=== PATIENT | female | born 1960 | race Caucasian/White ===

== ENCOUNTER → 2020-05-07 | Outpatient (CLI) | payer BC | END | disposition home or self-care (01) | LOC: LABPAT 08:18 | PROVIDERS: ATTEND Obstetrics & Gynecology | DX: Z01.818 Encounter for other preprocedural examination (principal) | CPT/HCPCS: 36415; 86850; 86900; 86901 ==

== ENCOUNTER 2020-05-10 05:54 | Observation (INO) | payer BC ==
[2020-05-04 11:28] VITALS: BMI 35.4
--- NOTE | 2020-05-07 12:13 | P.HPOB ---
History of Present Illness H&P Date: 05/07/20 Chief Complaint: Ovarian cyst Patient is a 60-year-old female with a left ovarian cyst noted on ultrasound. She was referred to me by her primary care. Provider and the cystic areas noted and has been present for approximately 10 years. She had seen a prior rolloff driver who was following it and they were not doing anything to resolve the cyst, but she now feels she is much more bloating and she is more symptomatic with discomfort. She is requesting surgical removal. She is scheduled for a robotic-assisted laparoscopic hysterectomy with left salpingo- oophorectomy possible GORDON and possible BSO. She was offered referral to gynecology oncology but she has declined this. Her CA-125 level was normal. She is aware of risks of surgery including but not limited to bleeding and infection damage to bladder, bowel, vascular injuries, nerve injuries, ureteral injuries as well as potential need further surgery even . All questions are answered for her prior to proceeding to the operating room. Past Medical History Past Medical History: Sleep Apnea/CPAP/BIPAP Additional Past Medical History / Comment(s): cpap use, states has ovarian cyst History of Any Multi-Drug Resistant Organisms: None Reported Past Surgical History: Appendectomy Past Anesthesia/Blood Transfusion Reactions: No Reported Reaction Smoking Status: Former smoker - Past Family History Sister(s) Family Medical History: Cancer Additional Family Medical History / Comment(s): colon Medications and Allergies Home Medications Medication Instructions Recorded Confirmed Type FLUoxetine HCL [PROzac] 20 mg PO BID 05/04/20 05/04/20 History Oxybutynin Xl [Ditropan Xl] 5 mg PO DAILY 05/04/20 05/04/20 History Allergies Allergy/AdvReac Type Severity Reaction Status Date / Time No Known Allergies Allergy Verified 05/04/20 11:22 Exam Osteopathic Statement: *. No significant issues noted on an osteopathic structural exam other than those noted in the History and Physical/Consult. - OBG Physical Exam Breast: both: normal (no masses) Abdomen: bowel sounds normal, no diffuse tenderness, no bruit present, no guarding noted, no hepatomegaly, no splenomegaly, no mass Vulva: both: normal Vagina: normal moisture, no discharge Cervix: no lesion, no discharge Uterus: normal size, normal contour Adnexa: both: normal Anus/Rectum: normal perianal skin, no rectal mass, no hemorrhoids, heme negative
[~2020-05-10 05:54] MED LIST: DEXAMETHASONE SOD PHOSPHATE 4 MG/ML 1 ML VIAL IV ONE
[2020-05-10] MEDS: LACTATED RINGERS 1,000 ML IV SCH (06:33)
[2020-05-10] MEDS ORDERED: LIDOCAINE 1% (10MG/ML) FOR IV START INTRADERMA ONE (06:33)
[2020-05-10] MEDS: ONDANSETRON 4 MG/2 ML VIAL IVP ONE ×2 (06:36→10:01)
[2020-05-10] MEDS ORDERED: SUCCINYLCHOLINE CHLORIDE 100 MG/5 ML SYR IV ONE (07:53)
[2020-05-10] MEDS ORDERED: NEOSTIGMINE 1 MG/ML 10 ML VIAL ONE (07:53)
[2020-05-10] MEDS ORDERED: KETOROLAC 15 MG/ML 1 ML VIAL ONE (07:53)
[2020-05-10] MEDS ORDERED: GLYCOPYRROLATE 0.2 MG/ML 2 ML VIAL ONE (07:53)
[2020-05-10] MEDS ORDERED: ROCURONIUM 10 MG/ML (10 ML VIAL) IV ONE (07:53)
[2020-05-10] MEDS ORDERED: LIDOCAINE 1% INJ 10MG/ML (20 ML MDV) ONE (07:53)
[2020-05-10] MEDS ORDERED: MIDAZOLAM 2 MG/2 ML VIAL ONE (07:53)
[2020-05-10] MEDS ORDERED: fentaNYL (PF) 50 MCG/ML 2 ML AMP ONE (07:53)
[2020-05-10] MEDS ORDERED: BUPIVACAINE (PF) 0.25% 30 ML VIAL SQ ONE (08:16)
[2020-05-10] MEDS ORDERED: BACITRACIN ZINC 500 UNIT/GM OINT 28.4 GM TUBE TOPICAL ONE (08:59)
[2020-05-10] MEDS ORDERED: IOPAMIDOL-370 50ML BTL MISCELLANE ONE (09:19)
[2020-05-10] MEDS ORDERED: ONDANSETRON 4 MG/2 ML VIAL IVP PRN (09:28)
[2020-05-10] MEDS ORDERED: SIMETHICONE 80 MG CHEWABLE PO PRN (09:28)
--- NOTE | 2020-05-10 09:33 | P.GSCN ---
History of Present Illness Consult date: 05/10/20 Reason for Consult: evaluation of left ureter History of present illness: Ms Patel is a 60-year-old female that is undergoing robotic-assisted laparoscopic hysterectomy she underwent a cystoscopy that showed clear effluxed from the right ureter, but no reflux was seen from the right ureter. Given this finding decision was made to consult urology intraoperatively. No prior urological surgeries Review of Systems Unable to perform due to patient being intubated for surgery Past Medical History Past Medical History: Sleep Apnea/CPAP/BIPAP Additional Past Medical History / Comment(s): cpap use, states has ovarian cyst History of Any Multi-Drug Resistant Organisms: None Reported Past Surgical History: Appendectomy Past Anesthesia/Blood Transfusion Reactions: No Reported Reaction Smoking Status: Former smoker - Past Family History Sister(s) Family Medical History: Cancer Additional Family Medical History / Comment(s): colon Medications and Allergies Home Medications Medication Instructions Recorded Confirmed Type FLUoxetine HCL [PROzac] 20 mg PO BID 05/04/20 05/10/20 History Oxybutynin Xl [Ditropan Xl] 5 mg PO DAILY 05/04/20 05/10/20 History Allergies Allergy/AdvReac Type Severity Reaction Status Date / Time No Known Allergies Allergy Verified 05/04/20 11:22 Surgical - Exam Vital Signs Temp Pulse Resp BP Pulse Ox 97.8 F 60 16 132/66 95 05/10/20 06:19 05/10/20 06:19 05/10/20 06:19 05/10/20 06:19 05/10/20 06:19 Assessment and Plan Assessment: Ms Patel is a 60-year-old female that is undergoing robotic-assisted laparoscopic hysterectomy, she underwent a cystoscopy that showed clear effluxed from the right ureter, but no reflux was seen from the right ureter. Given this finding decision was made to consult urology intraoperatively. -Cystoscopy was performed in the OR, cystoscopy was within normal limits,prior to attempting to catheterize left ureter, clear reflux was seen from the left ureter, given this finding no further intervention was performed
--- NOTE | 2020-05-10 09:37 | P.OP ---
Date of Procedure: 05/10/20 Preoperative Diagnosis: ovarian cyst Postoperative Diagnosis: same Procedure(s) Performed: Cystoscopy Implants: None Anesthesia: ZEINAA Surgeon: Madi Thomas Estimated Blood Loss (ml): 0 Pathology: none sent Condition: stable Disposition: PACU Indications for Procedure: Ms Patel is a 60-year-old female that is undergoing robotic-assisted laparoscopic hysterectomy, [place] cervicectomy she underwent a cystoscopy that showed clear effluxed from the right ureter, but no reflux was seen from the right ureter. Given this finding decision was made to consult urology intraoperatively. No prior urological surgeries Operative Findings: Clear efflux seen from bilateral ureters, normal cystoscopy Description of Procedure: Urology was called after no reflux was seen from the left ureter. A cystoscopy fitted 22-Uzbek sheath was inserted per urethra, cystoscopy was performed showed no abnormality within the bladder. Clear reflux was seen from the right ureter. I then attempted to catheterize the left ureter, but patient had J hooking of the left ureter, I then attempted to pass a wire through the catheter. But prior to passing the wire through the catheter clear reflux was seen from the left ureter, given this finding of clear efflux from the left ureter, catherization was not performed.
--- NOTE | 2020-05-10 09:38 | P.OP ---
Date of Procedure: 05/10/20 Preoperative Diagnosis: Ovarian mass Postoperative Diagnosis: Same with noted what is a paraovarian/ paratubal cyst small fibroid posterior uterus Procedure(s) Performed: Robotic-assisted laparoscopic hysterectomy with bilateral salpingo-oophorectomy and cystoscopy Anesthesia: ALEX Surgeon: Dano Cr Lime Burner #1: Yamini Al Estimated Blood Loss (ml): 100 IV fluids (ml): 800 Urine output (ml): 200 Pathology: other (Uterus, cervix, bilateral fallopian tubes and ovaries) Condition: stable Disposition: floor Operative Findings: Large left paraovarian/paratubal cyst which was removed along with uterus that contained approximately 2-3 cm fibroid pedunculated posteriorly Description of Procedure: The patient was taken to the operating suite where a general anesthetic was found be adequate. She was prepped and draped in the normal sterile fashion and placed in dorsal lithotomy position. Initially a speculum was inserted into the vagina and the anterior lip of the cervix identified and grasped with a single- tooth tenaculum. Cervix was then dilated cup was measured 2.5 cm and uterus sounded to 7-8 cm. Missy manipulator was then inserted without difficulty and Diamond cath was placed with other incidents removed and sutures placed at 3 and 9 for assistance in removal. Gloves were then changed and attention was turned to the abdominal portion procedure where 3 mL of quarter percent Marcaine was injected. Umbilical. Through this injected anesthetic 8 mm skin incision was made and a port and sleeve were inserted under direct visualization with an optical trocar without difficulty. Once peritoneal placement was assured gas was left fully insufflate the abdomen and patient was placed in steep Trendelenburg position of 25. 2 lateral ports were then placed 10 cm from the umbilicus on the right and left side and a fourth port and sleeve was inserted through a 1 cm incision between the left lateral and medial port. Camera port was then exchanged for a robotic port and the da Yosef robot was brought in and docked. Once fully docked a scissor was placed in the one arm and a [place] grasper in the 2 arm. At this point I broke scrub and went to the console. Observations pelvis were noted. Uterus was then elevated tip left-hand side ovarian/paraovarian cyst was then identified elevated and using [place] grasped cauterized the infundibular pelvic ligament posteriorly tissue was cauterized and then running to the mesosalpinx tissues to the round ligament tissues cauterized all the way to the round ligament and cut. Round ligament was then cauterized and transected anterior posterior leafs of the broad ligament were then developed and cardinal ligaments were cauterized to the uterosacral ligament. Bladder flap was then identified and entered with Metzenbaums Scissors and Carried across Face the Uterus with Metzenbaum Scissors and Bladder Was Then Bluntly Dissected Out Of the Operative Field. Similar Fashion Right Side of the Uterus Was Developed. Once This Is Complete with Bladder Completely Out Of the Operative Field Anterior Colpotomy Was Made and This Opening Was Followed around in a 3 and 60 Fashion Cheating Head When Necessary to Maintain Excellent Hemostasis Once Complete Removal from the Vagina Was Noted Uterus Was Brought down into the Vagina to Maintain Pneumoperitoneum. Cyst Was Too Large to Fit into the Vagina through That Small Opening Therefore Was Placed in the Gallbladder Bag and Once in the Gallbladder Bag It Was Perforated and the Fluid Was Noted Be Clear and Was Removed with the Ovarian Cyst through the Bag. Once This Was Completed Pelvis Was Irrigated Seeing No Significant Bleeding in and around the Pedicles the Incidents Were Exchanged for a Make Suture Cut and Cardia Grasper and Using to OB Lock Suture the Vaginal Cuff Was Closed. A Laceration Was Noted in the Vagina during This Closure Once Closed and Observations Observe There Was No Significant Bleeding from Any of the Pedicles the Vaginal Cuff Therefore All Closed Incidents Removed Robot Was Brought out and Was Undocked and Dr. Al Following Removal of the Pneumoperitoneum and 5 Deep Breaths Close Incision Subcuticular at This Point I Did Identify 2 Separate Lacerations in the Vagina Which Were Repaired with 3-0 Vicryl in a Running Fashion. Once That Was Completed with Good Hemostasis Noted I Did Do a Cystoscopy Cystoscopy Showed Good Flow from the Right Ureteral Jets Were No Flow Was Noted from the Left Ureteral Jets. We Observe This Area for Twin 10 and 15 Minutes and at This Point I Did Call Urology. Urology Came in Repeat the Cystoscopy and Using a Catheter Tip Entered the Meatus and on Removal of the Just the Tip of the Catheter Urine Flowed without Difficulty and Was Noted to Be Clear Therefore Allis Was Removed and Cystoscopy Was Discontinued at That Point with Good Flow Noted from Both Ureteral Jets. I Did at This Point Packed the Vagina with Iodoform Gauze Bacitracin and Will Plan to Remove That Later Today. All Incidents Were Then Removed. Sponge, Lap, Needle Counts Were All Correct 2 and Patient Was Then Taken to the Recovery Room in Stable and Satisfactory Condition.
[2020-05-10] MEDS: HYDROmorphone 0.5 MG/0.5 ML SYRINGE IVP PRN ×2 (09:49→09:57)
[2020-05-10] MEDS ORDERED: LACTATED RINGERS 1,000 ML IV ONE (10:05)
[2020-05-10] MEDS: KETOROLAC 15 MG/ML 1 ML VIAL IVP PRN (17:12)
[2020-05-10] MEDS: FLUoxetine HCL 20 MG CAP PO SCH (20:34)
[2020-05-10] MEDS: SENNOSIDES-DOCUSATE SODIUM 1 EACH TAB PO SCH (20:34)
[2020-05-11] MEDS: KETOROLAC 15 MG/ML 1 ML VIAL IVP PRN ×2 (01:23→09:32)
[2020-05-11] MEDS: LACTATED RINGERS 1,000 ML IV SCH (06:28)
[2020-05-11] MEDS: FLUoxetine HCL 20 MG CAP PO SCH (09:32)
[2020-05-11] MEDS: SENNOSIDES-DOCUSATE SODIUM 1 EACH TAB PO SCH (09:32)
[2020-05-11 09:38] VITALS: RESP 16; TEMP 98
[2020-05-11 12:38] VITALS: BP 130/70; PULSE 59
--- NOTE | 2020-05-11 16:03 | P.DS ---
Providers Date of admission: 05/11/20 01:36 Expected date of discharge: 05/11/20 Attending physician: Dano Cr Consults: 05/10/20 09:28 Consult Physician Routine Consulting Provider: Aric Hdz Consult Reason/Comments: medical managment Do you want consulting provider notified?: Yes [facility]: Daniela was doing very well postop day 1. She was ambulating, voiding and tolerating her diet. She voices no complaints and her was requesting discharge home this morning. Vital signs were stable and she was afebrile. Heart reg ular, lungs clear, extremities without pain. Abdomen was soft and incisions are intact. No vaginal bleeding was noted. Prescription for [place] and Motrin are reported to the pharmacy and all questions were answered for her prior to her discharge. She will see me in 1 week for reevaluation. Discharge instructions thoroughly reviewed and all questions are answered. She is stable for discharge at this time. Patient Condition at Discharge: Good Plan - Discharge Summary Discharge Rx Participant: Yes New Discharge Prescriptions: No Action FLUoxetine HCL [PROzac] 20 mg PO BID Oxybutynin Xl [Ditropan Xl] 5 mg PO DAILY Discharge Medication List FLUoxetine HCL [PROzac] 20 mg PO BID 05/04/20 [History] Oxybutynin Xl [Ditropan Xl] 5 mg PO DAILY 05/04/20 [History] Discharge Disposition: HOME SELF-CARE
== END 2020-05-11 13:20 | disposition home or self-care (01) ==
LOC: OR 05:54 → 4FBP 09:41 → OR 05-11 07:08
PROVIDERS: ADMIT Obstetrics & Gynecology; ATTEND Obstetrics & Gynecology
DX: N83.202 Unspecified ovarian cyst, left side (principal); D25.9 Leiomyoma of uterus, unspecified; N83.8 Other noninflammatory disorders of ovary, fallopian tube and broad ligament; G47.33 Obstructive sleep apnea (adult) (pediatric); Z87.891 Personal history of nicotine dependence; Z99.89 Dependence on other enabling machines and devices; Z79.899 Other long term (current) drug therapy; Z90.49 Acquired absence of other specified parts of digestive tract; Z80.0 Family history of malignant neoplasm of digestive organs
CPT/HCPCS: 58571; S2900; 36415; 86850; 86900; 86901; 88307